=== PATIENT | male | born 1990 | race Caucasian/White ===

== ENCOUNTER 2018-12-22 09:42 | Day surgery (SDC) | payer MEDICAID, SELFPAY ==
--- NOTE | 2018-11-22 02:49 | HP_ITS ---
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 Is patient in pain?: No Allergies ibuprofen Allergy (Intermediate, Verified 11/22/18 13:28) liver swelling insulin isophane (NPH) [From Novolin 70/30 U-100 Insulin] Allergy (Intermediate, Verified 11/22/18 13:29) swelling insulin regular [From Novolin 70/30 U-100 Insulin] Allergy (Intermediate, Verified 11/22/18 13:29) swelling ketorolac [From Toradol] Allergy (Intermediate, Verified 11/22/18 13:29) Shortness of breath lisinopril Allergy (Intermediate, Verified 11/22/18 13:28) chest pain penicillin G Allergy (Intermediate, Verified 11/22/18 13:28) swelling/hives Medications carvedilol 25 mg tablet 25 mg PO BID 11/22/18 [History Confirmed 11/22/18] diltiazem CD 240 mg capsule,extended release 24 hr 240 mg PO DAILY 11/22/18 [History Confirmed 11/22/18] hydralazine 100 mg tablet 100 mg PO Q6H tab 11/22/18 [History Confirmed 11/22/18] insulin aspart prot-aspart 100 unit/mL (70-30) subcutaneous cartridge 1 sliding scale dose SC USEASDIRECTD 11/22/18 [History] insulin glargine (U-100) 100 unit/mL (3 mL) subcutaneous pen 20 unit SC DAILY 11/22/18 [History Confirmed 11/22/18] sevelamer carbonate 800 mg tablet 800 mg PO TID 11/22/18 [History Confirmed 11/22/18] PFSH Medical History (Updated 11/22/18 @ 14:46 by Chun Hinton MD) Chronic renal failure, stage 5 (Chronic) Diabetes (Acute) History of back problems (Acute) Chronic renal failure, stage 4 (severe) (Chronic) Hypertension (Chronic) Surgical History (Updated 11/22/18 @ 13:14 by Isabella Garcia) History of left cataract surgery (Acute) History of tonsillectomy (Acute) Status post insertion of dialysis catheter (Acute ~05/16/18) Status post laser cataract surgery of left eye (Acute) Family History (Updated 11/22/18 @ 13:26 by Isabella Garcia) Grandmother Asthma Arthritis Hypertension Kidney disease Diabetes Father Hypertension Grandfather Hypertension Aunt Kidney disease Diabetes Uncle Kidney disease Diabetes Mother High cholesterol Social History (Updated 11/22/18 @ 14:50 by Chun Hinton MD) Smoking Status: Current every day smoker alcohol intake: never substance use type: does not use HPI HPI HPI: DUSTY MANSFIELD, is a 28 M who presents to the office today for HPI HPI Surgical H&P: Yes HPI: DUSTY MANSFIELD, is a 28 M who presents to the office today for surgical consultation regarding arteriovenous fistula creation for hemodialysis. The patient is referred by Dr. Woodall and a written copy of my surgical consult recommendations will be returned to him. According to the patient he has been scheduled [address] Hosea Caballero to have a fistula created in by patient report [address] Caballero canceled the procedure. The patient has had right IJ tunneled dialysis catheters in place since May 2018. He is a diabetic who by his own account completely ignored his health. After his acute crisis May 2018 he states that he is doing better. States that he is legally blind and on complete disability because of this. He has and is still a chronic ongoing cigarette and tobacco user. Marijuana has been utilized as well. He denies IV drug abuse. He had bilateral upper extremity vein mapping done July 04, 2018 at [facility]. Unfortunately this demonstrates very diminutive cephalic veins bilaterally. Bilateral basilic veins are borderline. He is right arm dominant ROS General General: Yes weight change and fatigue; no appetite, colon cancer, breast cancer or weakness HEENT HEENT: Yes eye surgery; no difficulty swallowing, eye injury, swollen glands or hoarseness Endo Endocrine: Yes diabetes mellitus; no thyroid disease, thyroid cancer, Hair loss, heat intolerance or cold intolerance Skin Skin: No rash or changing moles Breast Breast: No left breast lump, right breast lump, nipple discharge, breast pain, abnormal mammogram, abnormal US or breast enlargement Musc Musculoskeletal: Yes back problems; no arthritis, rheumatoid arthritis, gout or joint pain Cardio Cardiovascular: Yes high blood pressure; no murmur, pacemaker, heart disease, atrial fibrillation, heart attack, heart stent, palpitations, shortness of breat with exertion or chest pain Psych Psychiatric: No depression, anxiety or hearing voices Resp Respiratory: Yes shortness of breath, No sleep apnea, Yes cough, No COPD, No asthma, No emphysema, No wheezing Gastro Gastrointestinal: No abdominal pain, No nausea or vomiting, Yes diarrhea, No constipation, No blood in stool, Yes acid reflux, No hemorrhoids, No ulcers, No gallbladder problem, No black,tarry stools Azeem Hematologic: No blood thinners, No blood disorders, No bleeding, No anemia, No blood clots Neuro Neurologic: No system reviewed and no additional complaints, except as docu, No as per HPI, No abnormal walking, No abnormal hearing, No abnormal movements, No abnormal speech, No behavioral changes, No burning sensations, No confusion, No seizure-like activity, No unsteadiness, No dizziness, No localized weakness, No frequent falls, No headache(s), No lack of coordination, No loss of vision, No memory loss, Yes numbness, No other visual disturbances, No radiating pain, No restless legs, No sensory deficit, No fainting, Yes tingling, No tremor(s), No weakness, No other Exam Const Nutritional Appearance: underweight Orientation: alert, awake, oriented x3 Other: Patient appears to be much older than stated age Heavy odor of tobacco HENMT Mouth: other (Very poor dentition with multiple caries) Chest Breast Palpation: No nipple discharge Other: Right IJ tunneled dialysis catheters in place Resp Effort & Inspection: normal respiratory effort Cardio Rate: regular rate Rhythm: regular rhythm Heart Sounds: no murmurs Other: Bilateral radial pulses 2+. Bilateral brachial pulses 3+. Bilateral carotid 3+ no carotid bruits. GI Palpation: soft, no hepatosplenomegaly Auscultation: normal bowel sounds Skin General: no rashes or lesions noted Extrem General: no calf tenderness bilaterally Psych Affect: normal affect Assessment & Plan Problems 1. Chronic renal failure, stage 5 N18.5 Plan 28-year-old gentleman on hemodialysis since May 2018 with chronic renal failure secondary to complications of diabetes. Additional complications include legal blindness. Complete disability. In addition to this is a chronic ongoing tobacco smoker. I have personally imaged his left upper extremity looking for adequate cephalic vein. The cephalic vein of the forearm and upper arm quite small. The left upper arm basilic vein borderline. This patient has significant dental caries. Diabetic. Ongoing tobacco use. He is at increased risk for infection. I would like to avoid placing a prosthetic dialysis device in. I proposed for him a left upper arm stage I basilic vein to brachial artery arteriovenous fistula creation and I have discussed the technique, benefits, risks, alternatives. No guarantees of success have been offered. The patient is aware that a second transposition procedure will be required. I have vigorously encouraged the patient to cease his tobacco use. He states that he has an upcoming transplant appointment and I have instructed him that they will not consider him for transplant if he is continuing to smoke. He has had an opportunity to ask and have questions answered. We will schedule and proceed as noted. I appreciate the opportunity of assisting with his surgical care. CC: and Dr Soo Hinton M.D., F.A.C.S. Coding Level of Care Code 49817 Diagnoses Chronic renal failure, stage 5 N18.5 11/22/18 4280 <Electronically signed by Chun thompson MD> Date _ Chun Hinton MD I have re-examined the patient. There are no clinical changes since date of exam.
[2018-11-22 13:26] VITALS: BMI 19.7
[2018-12-15 09:59] VITALS: BP 178/108; PULSE 76; RESP 16; TEMP 36.6; O2SAT 100; BMI 20.6
--- NOTE | 2018-12-15 10:05 | SDCEKG_ITS ---
Test Reason : Blood Pressure : / mmHG Vent. Rate : 077 BPM Atrial Rate : 077 BPM P-R Int : 142 ms QRS Dur : 098 ms QT Int : 420 ms P-R-T Axes : 063 046 111 degrees QTc Int : 475 ms Normal sinus rhythm Possible Left atrial enlargement ST & T wave abnormality, consider lateral ischemia Prolonged QT Poor R-Wave Progression Abnormal ECG Confirmed by AARON SR, JAYLON ([id number]), editor magazine BECKY SANDY ([id number]) on 12/19/2018 9:40:35 AM Referred By: Chun Hinton Confirmed By:JAYLON WALKER MD
[2018-12-15 10:29] LABS: Hematocrit 35.7 % (40-54); Hemoglobin 11.5 g/dL (13.0-16.5); Mean Corp Hgb Conc 32.2 g/dL (32-36); Mean Corpuscular Hgb 31.8 pg (27.0-32.0); Mean Corpuscular Volume 98.6 fL (80-94); Mean Platelet Vol. 11.5 fl (6.2-12.0); Platelet Count 92 K/mm3 (150-450); RBC Distribution Width CV 12.9 % (11.6-14.6); RBC Distribution Width SD 46.4 fl (35.1-43.9); Red Blood Count 3.62 M/mm3 (4.6-6.2); White Blood Count 4.9 K/mm3 (4.4-11.0)
[2018-12-15 11:19] LABS: Anion Gap 7 (5-15); BUN 38 mg/dL (7-18); BUN/Creat Ratio 4.8 RATIO (10-20); Calcium,Total 9.3 mg/dL (8.5-10.1); Chloride 99 mmol/L (98-107); Creatinine, Serum 7.87 mg/dL (0.70-1.30); EST Glomerular Filtration Rate 9 mL/min (>60); Est Glom Filt Rate - Afr Amer 11 mL/min (>60); Estimated Creatinine Clearance 12.51 ml/min; Glucose 95 mg/dL (74-106); Potassium 5.2 mmol/L (3.5-5.1); Sodium Level 138 mmol/L (136-145)
[2018-12-22] VITALS (15 sets, daily range): BP systolic 120–192; BP diastolic 80–125; PULSE 72–87; RESP 16; TEMP 36.3–36.7; O2SAT 92–98; BMI 20.6
[2018-12-22 10:56] LABS: Bedside Glucose 161 mg/dL (70-110)
--- NOTE | 2018-12-22 12:14 | DCINST_ITS ---
Discharge Diet: Renal Diet Discharge Activity: May Not Drive - for 2-3 days or while taking narcotic pain medications., May Shower, May Take a Tub Bath - in 5 days. Lifting Restrictions: 5 pounds Keep extremity elevated above heart level: - - Keep arm elevated above the heart level for 3 days. Additional Activity Instructions:: Exercise hand vigorously with a stress ball. Call your doctor if your incision/area has: Continuous Slow Oozing, Sudden Increased Bleeding - apply pressure and call your doctor., Increased Pain/ Swelling, Increased Redness, Foul Smelling Discharge Call your doctor if you observe: Fever of 101 or Higher Suture Line Care: Avoid Pulling/Pushing, Avoid Pinching/Bending Cleanse incision/area with: Keep Dressing Clean & Dry Additional Dressing/Incision Instructions:: Change or remove dressing in two days. May protect with a gauze bandaid. Allergies/Adverse Reactions: Allergies ibuprofen Allergy (Intermediate, Verified 12/22/18 10:07) liver swelling insulin isophane (NPH) [From Novolin 70/30 U-100 Insulin] Allergy (Intermediate, Verified 12/22/18 10:07) swelling insulin regular [From Novolin 70/30 U-100 Insulin] Allergy (Intermediate, Verified 12/22/18 10:07) swelling ketorolac [From Toradol] Allergy (Intermediate, Verified 12/22/18 10:07) Shortness of breath lisinopril Allergy (Intermediate, Verified 12/22/18 10:07) chest pain penicillin G Allergy (Intermediate, Verified 12/22/18 10:07) swelling/hives Medications to take at Discharge carvedilol 25 mg tablet 25 mg PO BID 11/22/18 diltiazem CD 240 mg capsule,extended release 24 hr 240 mg PO QHS 11/22/18 hydralazine 100 mg tablet 100 mg PO Q6H tab 11/22/18 insulin aspart prot-aspart 100 unit/mL (70-30) subcutaneous cartridge 1 sliding scale dose SC USEASDIRECTD 11/22/18 Calcium Acetate [Phoslo Gel Cap] 1,334 mg PO TIDCM 12/15/18 Insulin Glargine,Hum.rec.anlog [Basaglar Kwikpen U-100] 12 unit SUBCUT QHS 12/15/18 varenicline 1 mg tablet 1 mg PO BID 12/15/18 RX: Clonidine HCl [Catapres] 1 tab PO TID 12/22/18 Primary Care Physician: April Vann MD [Primary Care Provider] - Test Results: Test results from this visit will be discussed in further detail at your follow- up appointment, if applicable. Please Follow Up With: Chun Hinton MD - [phone] When: Call to make an appointment for suture removal and follow up in 7-10 days.
[2018-12-22] MEDS: Bupivacaine Mpf 0.5% 30 ML VIAL (13:00)
--- NOTE | 2018-12-22 13:16 | OP.PCM_ITS ---
Problem List (1) Chronic renal failure, stage 5 Status: Chronic Report of Operation Date of Procedure: 12/22/18 Pre-Operative Diagnosis: Stage V chronic renal failure Post-Operative Diagnosis: Same Surgery/Procedure Performed:: Stage I left upper extremity basilic vein to brachial artery venous hemodialysis fistula creation Description of Surgical Findings:: Timeout and informed consent was obtained. 28-year-old gent was taken to the operating placed on the table underwent monitored anesthesia care. The left upper extremity was sterilely prepped and draped. Clean procedure. 1% li docaine mixed 50-50 with 0.5% Marcaine was used as a local anesthetic. Throughout the procedure a total of cc was used. Preoperatively I had vein map the basilic vein at the antecubital space. Local was instilled. A oblique incision was created sharp and blunt dissection was used to identify the basilic vein. I then performed sharp and blunt dissection to identify the brachial artery. The patient received 6000 units of heparin intravenously. At a branch point the basilic vein was secured distally with hemoclips. I then at the branch point spatulated the vein. Peripheral vascular clamps were placed on the brachial artery and 11 blade was used to make an arteriotomy which was extended with Cross scissors. A end-to-side anastomosis created with a running 7-0 Prolene suture. Prior to completion there is good antegrade and retrograde flow. The anastomosis was completed. Initially was good flow in the vein. Radial pulse was still palpable 3+. Hemostasis was intact. Blood loss minimal The wound was closed with deep layer of interrupted 3-0 Vicryl and then a running septic or 4-0 Monocryl subdermal stitch. Steri-Strips Telfa tape dressings applied. Sponge and instrument counts were reported to the surgeon to be correct. Specimens none. Drains none. Blood loss minimal. He was taken to the recovery room in satisfactory condition without apparent complication Chun Hinton M.D., F.A.C.S. Type of Anesthesia:: Local MAC Anesthesiologist: Gus Garrido
[2018-12-22 13:40] LABS: Bedside Glucose 197 mg/dL (70-110)
[2018-12-22] MEDS: HYDROcodone Bitartrate/Apap 5/325 Tablet PO (15:30)
--- NOTE | 2018-12-22 15:54 | SUR.PHASEII ---
AT 1530, LEFT UPPER ARM DRESSING CHANGED FOR APPROXIMATELY 50% COVERAGE OF DRESSING WITH RED DRAINAGE. INCISION LINE EDGES ARE WELL APPROXIMATED WITH A VERY SLOW OOZE OF BLOOD. STERI STRIPS INTACT. DRY, STERILE NON-ADHERENT DRESSING. WHITE PAPER TAPE APPLIED. FISTULA HAS GOOD BRUIT AND THRILL.
== END 2018-12-22 15:45 | disposition home or self-care (01) ==
LOC: SDC 09:43 → AC 09:43
PROVIDERS: Family Provider Student in an Organized Health Care Education/Training Program; PCP Student in an Organized Health Care Education/Training Program; Referring Provider Surgery; Visit Provider Surgery
PROC: (CPT 36821; principal; 2018-12-22 11:45)
DX: Z45.2 Encounter for adjustment and management of vascular access device (principal); I12.0 Hypertensive chronic kidney disease with stage 5 chronic kidney disease or end stage renal disease; N18.5 Chronic kidney disease, stage 5; E11.22 Type 2 diabetes mellitus with diabetic chronic kidney disease; H54.8 Legal blindness, as defined in USA; F17.210 Nicotine dependence, cigarettes, uncomplicated; Z99.2 Dependence on renal dialysis; Z79.4 Long term (current) use of insulin; Z79.899 Other long term (current) drug therapy
CPT/HCPCS: 36821; 80048; 82962; 85027; 93005; A4216; J2405

== ENCOUNTER 2019-03-02 08:51 | Day surgery (SDC) | payer MEDICAID, SELFPAY ==
[2018-12-22 10:09] VITALS: BMI 20.6
[2019-02-02 10:06] VITALS: BMI 19.9
--- NOTE | 2019-02-06 10:24 | HP_ITS ---
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: No Is patient in pain?: No Allergies ibuprofen Allergy (Intermediate, Verified 02/02/19 10:00) liver swelling insulin isophane (NPH) [From Novolin 70/30 U-100 Insulin] Allergy (Intermediate, Verified 02/02/19 10:00) swelling insulin regular [From Novolin 70/30 U-100 Insulin] Allergy (Intermediate, Verified 02/02/19 10:00) swelling ketorolac [From Toradol] Allergy (Intermediate, Verified 02/02/19 10:00) Shortness of breath lisinopril Allergy (Intermediate, Verified 02/02/19 10:00) chest pain penicillin G Allergy (Intermediate, Verified 02/02/19 10:00) swelling/hives Medications carvedilol 25 mg tablet 25 mg PO BID 11/22/18 [History Confirmed 02/02/19] diltiazem HCl 240 mg capsule,extended release 24 hr 240 mg PO QHS 11/22/18 [History Confirmed 02/02/19] insulin aspart prot-aspart 100 unit/mL (70-30) subcutaneous cartridge 1 sliding scale dose SC USEASDIRECTD 11/22/18 [History Confirmed 02/02/19] Calcium Acetate [Phoslo Gel Cap] 1,334 mg PO TIDCM 12/15/18 [History Confirmed 02/02/19] Insulin Glargine,Hum.rec.anlog [Basaglar Kwikpen U-100] 12 unit SUBCUT QHS 12/15/18 [History Confirmed 02/02/19] clonidine HCl 0.1 mg tablet 0.1 mg PO BID tab 02/02/19 [History Confirmed 02/02/19] hydralazine 100 mg tablet 100 mg PO BID tab 02/02/19 [History Confirmed 02/02/19] nifedipine 60 mg tablet,extended release 60 mg PO BID tab 02/02/19 [History Confirmed 02/02/19] [facility] Medical History Chronic renal failure, stage 5 (Chronic) History of back problems (Acute) Hypertension (Chronic) Diabetes (Acute) Chronic renal failure, stage 4 (severe) (Chronic) Surgical History Hx of arteriovenostomy for renal dialysis (Acute) Status post insertion of dialysis catheter (Acute ~05/16/18) Status post laser cataract surgery of left eye (Acute) History of left cataract surgery (Acute) History of tonsillectomy (Acute) Family History Grandmother Asthma Arthritis Hypertension Kidney disease Diabetes Father Hypertension Grandfather Hypertension Aunt Kidney disease Diabetes Uncle Kidney disease Diabetes Mother High cholesterol Social History (Updated 02/06/19 @ 10:24 by Sol Jacques PA-C) Smoking Status: Current every day smoker alcohol intake: never substance use type: does not use HPI HPI HPI: DUSTY MANSFIELD, is a 28 M who presents to the office today for HPI HPI Surgical H&P: Yes HPI: DUSTY MANSFIELD, is a 28 M who presents to the office today for a follow-up and update history and physical. Patient denies recent hospitalizations or illnesses. He has been tolerating dialysis via catheter well. Patient has a stage I left upper extremity basilic vein to brachial artery venous fistula creation on 12/22/2018. Patient tolerated the procedure well. ROS General General: Yes weight change and fatigue; no appetite, colon cancer, breast cancer or weakness HEENT HEENT: Yes eye surgery; no difficulty swallowing, eye injury, swollen glands or hoarseness Endo Endocrine: Yes diabetes mellitus; no thyroid disease, thyroid cancer, Hair loss, heat intolerance or cold intolerance Skin Skin: No rash or changing moles Breast Breast: No left breast lump, right breast lump, nipple discharge, breast pain, abnormal mammogram, abnormal US or breast enlargement Musc Musculoskeletal: Yes back problems; no arthritis, rheumatoid arthritis, gout or joint pain Cardio Cardiovascular: Yes high blood pressure; no murmur, pacemaker, heart disease, atrial fibrillation, heart attack, heart stent, palpitations, shortness of breat with exertion or chest pain Psych Psychiatric: No depression, anxiety or hearing voices Resp Respiratory: Yes shortness of breath, No sleep apnea, Yes cough, No COPD, No asthma, No emphysema, No wheezing Gastro Gastrointestinal: No abdominal pain, No nausea or vomiting, Yes diarrhea, No constipation, No blood in stool, Yes acid reflux, No hemorrhoids, No ulcers, No gallbladder problem, No black,tarry stools Azeem Hematologic: No blood thinners, No blood disorders, No bleeding, No anemia, No blood clots Neuro Neurologic: No weakness Exam Const General: cooperative, healthy appearing, comfortable, no acute distress HENMT Head: normal to inspection Eyes General: appearance normal, both eyes and all related structures Neck Neck: normal visual inspection Neck mass: No Chest Breast Palpation: No nipple discharge Resp Effort & Inspection: normal respiratory effort Auscultation: clear to auscultation bilaterally Cardio Rate: regular rate Heart Sounds: no murmurs GI Inspection: normal to inspection Palpation: soft Auscultation: normal bowel sounds Skin General: no rashes or lesions noted Neuro General: no focal motor deficits, CN's II-XI intact bilaterally Extrem General: normal to inspection Psych Appearance: grossly normal Affect: normal affect Assessment & Plan Problems 1. Chronic renal failure, stage [address] Hinton will plan to perform a stage II transposition of the left upper extremity. Procedure details, risks and benefits have been reviewed with the patient. 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 Patient will be scheduled at his convenience. Coding Level of Care Code Global Post Op Diagnoses Chronic renal failure, stage 5 N18.5 Comment Update H&P 02/06/19 1024 <Electronically signed by Sol patel PA-C> Date _ Sol Jacques PA-C
[2019-03-02] VITALS (11 sets, daily range): BP systolic 135–152; BP diastolic 86–99; PULSE 69–76; RESP 14–18; TEMP 36.4–36.9; O2SAT 90–100; BMI 21.2
[2019-03-02 09:15] LABS: Hematocrit 31.8 % (40-54); Mean Corp Hgb Conc 31.4 g/dL (32-36); Mean Corpuscular Hgb 31.6 pg (27.0-32.0); Mean Corpuscular Volume 100.6 fL (80-94); Mean Platelet Vol. 11.4 fl (6.2-12.0); Platelet Count 103 K/mm3 (150-450); RBC Distribution Width CV 14.2 % (11.6-14.6); RBC Distribution Width SD 51.2 fl (35.1-43.9); Red Blood Count 3.16 M/mm3 (4.6-6.2); White Blood Count 5.9 K/mm3 (4.4-11.0)
[2019-03-02] MEDS: 0.45% Normal Saline 1,000 ML 15 ML IV (09:36)
[2019-03-02 09:37] LABS: Anion Gap 6 (5-15); BUN 24 mg/dL (7-18); BUN/Creat Ratio 3.6 RATIO (10-20); Calcium,Total 9.2 mg/dL (8.5-10.1); Chloride 100 mmol/L (98-107); Creatinine, Serum 6.69 mg/dL (0.70-1.30); EST Glomerular Filtration Rate 11 mL/min (>60); Est Glom Filt Rate - Afr Amer 13 mL/min (>60); Estimated Creatinine Clearance 15.21 ml/min; Glucose 231 mg/dL (74-106); Sodium Level 137 mmol/L (136-145)
[2019-03-02 09:46] LABS: Bedside Glucose 233 mg/dL (70-110)
--- NOTE | 2019-03-02 10:27 | PCM.HP.BLA ---
Problem List (1) Problem with dialysis access Status: Acute Qualifiers: Encounter type: initial encounter Qualified Code(s): T82.898A - Other specified complication of vascular prosthetic devices, implants and grafts, initial encounter History and Physical Date of Admission: 03/02/19 Intake Visit Reasons: Fistula Check Chief Complaint: recheck fistula Hr Shared Services Consultant Required: No Is patient in pain?: No Allergies ibuprofen Allergy (Intermediate, Verified 02/02/19 10:00) liver swelling insulin isophane (NPH) [From Novolin 70/30 U-100 Insulin] Allergy (Intermediate, Verified 02/02/19 10:00) swelling insulin regular [From Novolin 70/30 U-100 Insulin] Allergy (Intermediate, Verified 02/02/19 10:00) swelling ketorolac [From Toradol] Allergy (Intermediate, Verified 02/02/19 10:00) Shortness of breath lisinopril Allergy (Intermediate, Verified 02/02/19 10:00) chest pain penicillin G Allergy (Intermediate, Verified 02/02/19 10:00) swelling/hives Medications carvedilol 25 mg tablet 25 mg PO BID 11/22/18 [History Confirmed 02/02/19] diltiazem HCl 240 mg capsule,extended release 24 hr 240 mg PO QHS 11/22/18 [History Confirmed 02/02/19] insulin aspart prot-aspart 100 unit/mL (70-30) subcutaneous cartridge 1 sliding scale dose SC USEASDIRECTD 11/22/18 [History Confirmed 02/02/19] Calcium Acetate [Phoslo Gel Cap] 1,334 mg PO TIDCM 12/15/18 [History Confirmed 02/02/19] Insulin Glargine,Hum.rec.anlog [Basaglar Kwikpen U-100] 12 unit SUBCUT QHS 12/15/18 [History Confirmed 02/02/19] clonidine HCl 0.1 mg tablet 0.1 mg PO BID tab 02/02/19 [History Confirmed 02/02/19] hydralazine 100 mg tablet 100 mg PO BID tab 02/02/19 [History Confirmed 02/02/19] nifedipine 60 mg tablet,extended release 60 mg PO BID tab 02/02/19 [History Confirmed 02/02/19] PFSH Medical History Chronic renal failure, stage 5 (Chronic) History of back problems (Acute) Hypertension (Chronic) Diabetes (Acute) Chronic renal failure, stage 4 (severe) (Chronic) Surgical History Hx of arteriovenostomy for renal dialysis (Acute) Status post insertion of dialysis catheter (Acute ~05/16/18) Status post laser cataract surgery of left eye (Acute) History of left cataract surgery (Acute) History of tonsillectomy (Acute) Family History Grandmother Asthma Arthritis Hypertension Kidney disease Diabetes Father Hypertension Grandfather Hypertension Aunt Kidney disease Diabetes Uncle Kidney disease Diabetes Mother High cholesterol Social History (Updated 02/06/19 @ 10:24 by Sol Jacques PA-C) Smoking Status: Current every day smoker alcohol intake: never substance use type: does not use HPI HPI HPI: DUSTY MANSFIELD, is a 28 M who presents to the office today for HPI HPI Surgical H&P: Yes HPI: DUSTY MANSFIELD, is a 28 M who presents to the office today for a follow-up and update history and physical. Patient denies recent hospitalizations or illnesses. He has been tolerating dialysis via catheter well. Patient has a stage I left upper extremity basilic vein to brachial artery venous fistula creation on 12/22/2018. Patient tolerated the procedure well. ROS General General: Yes weight change and fatigue; no appetite, colon cancer, breast cancer or weakness HEENT HEENT: Yes eye surgery; no difficulty swallowing, eye injury, swollen glands or hoarseness Endo Endocrine: Yes diabetes mellitus; no thyroid disease, thyroid cancer, Hair loss, heat intolerance or cold intolerance Skin Skin: No rash or changing moles Breast Breast: No left breast lump, right breast lump, nipple discharge, breast pain, abnormal mammogram, abnormal US or breast enlargement Musc Musculoskeletal: Yes back problems; no arthritis, rheumatoid arthritis, gout or joint pain Cardio Cardiovascular: Yes high blood pressure; no murmur, pacemaker, heart disease, atrial fibrillation, heart attack, heart stent, palpitations, shortness of breat with exertion or chest pain Psych Psychiatric: No depression, anxiety or hearing voices Resp Respiratory: Yes shortness of breath, No sleep apnea, Yes cough, No COPD, No asthma, No emphysema, No wheezing Gastro Gastrointestinal: No abdominal pain, No nausea or vomiting, Yes diarrhea, No constipation, No blood in stool, Yes acid reflux, No hemorrhoids, No ulcers, No gallbladder problem, No black,tarry stools Azeem Hematologic: No blood thinners, No blood disorders, No bleeding, No anemia, No blood clots Neuro Neurologic: No weakness Exam Const General: cooperative, healthy appearing, comfortable, no acute distress HENMT Head: normal to inspection Eyes General: appearance normal, both eyes and all related structures Neck Neck: normal visual inspection Neck mass: No Chest Breast Palpation: No nipple discharge Resp Effort & Inspection: normal respiratory effort Auscultation: clear to auscultation bilaterally Cardio Rate: regular rate Heart Sounds: no murmurs GI Inspection: normal to inspection Palpation: soft Auscultation: normal bowel sounds Skin General: no rashes or lesions noted Neuro General: no focal motor deficits, CN's II-XI intact bilaterally Extrem General: normal to inspection Psych Appearance: grossly normal Affect: normal affect Assessment & Plan Problems 1. Chronic renal failure, stage [address] Hinton will plan to perform a stage II transposition of the left upper extremity. Procedure details, risks and benefits have been reviewed with the patient. 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 Patient will be scheduled at his convenience. Coding Level of Care Code Global Post Op Diagnoses Chronic renal failure, stage 5 N18.5 Comment Update H&P 02/06/19 1024 <Electronically signed by Sol Jacques PA-C> Date I have re-examined the patient. There are no clinical changes since date of exam.
--- NOTE | 2019-03-02 10:46 | DCINST_ITS ---
Discharge Diet: Renal Diet Discharge Activity: May Not Drive - for 2-3 days or while taking narcotic pain medications., May Shower, May Take a Tub Bath - in 5 days. Lifting Restrictions: 5 pounds Keep extremity elevated above heart level: - - Keep arm elevated above the heart level for 3 days. Additional Activity Instructions:: Exercise hand vigorously with a stress ball. Call your doctor if your incision/area has: Continuous Slow Oozing, Sudden Increased Bleeding - apply pressure and call your doctor., Increased Pain/ Swelling, Increased Redness, Foul Smelling Discharge Call your doctor if you observe: Fever of 101 or Higher Suture Line Care: Avoid Pulling/Pushing, Avoid Pinching/Bending Cleanse incision/area with: Keep Dressing Clean & Dry Additional Dressing/Incision Instructions:: Leave the elastic dressing on for 3 days and keep the area clean and dry for the same. After you remove the elastic dressing please leave the Steri-Strips on for an additional week Allergies/Adverse Reactions: Allergies ibuprofen Allergy (Intermediate, Verified 03/02/19 09:12) liver swelling insulin isophane (NPH) [From Novolin 70/30 U-100 Insulin] Allergy (Intermediate, Verified 03/02/19 09:12) swelling insulin regular [From Novolin 70/30 U-100 Insulin] Allergy (Intermediate, Verified 03/02/19 09:12) swelling ketorolac [From Toradol] Allergy (Intermediate, Verified 03/02/19 09:12) Shortness of breath lisinopril Allergy (Intermediate, Verified 03/02/19 09:12) chest pain penicillin G Allergy (Intermediate, Verified 03/02/19 09:12) swelling/hives Medications to take at Discharge carvedilol 25 mg tablet 25 mg PO BID 11/22/18 diltiazem HCl 240 mg capsule,extended release 24 hr 240 mg PO QHS 11/22/18 insulin aspart prot-aspart 100 unit/mL (70-30) subcutaneous cartridge 1 sliding scale dose SC USEASDIRECTD 11/22/18 Calcium Acetate [Phoslo Gel Cap] 1,334 mg PO TIDCM 12/15/18 Insulin Glargine,Hum.rec.anlog [Basaglar Kwikpen U-100] 12 unit SUBCUT QHS 12/15/18 clonidine HCl 0.1 mg tablet 0.1 mg PO BID tab 02/02/19 hydralazine 100 mg tablet 100 mg PO BID tab 02/02/19 nifedipine 60 mg tablet,extended release 60 mg PO BID tab 02/02/19 Hydrocodone Bitart/Apap 5-325 [[place] 5MG-325MG] 1 tablet PO Q6H PRN PRN 3 Days #8 tablet 03/02/19 The following prescriptions were given: Hydrocodone Bitart/Apap 5-325 [[place] 5MG-325MG] 1 tablet PO Q6H PRN PRN 3 Days #8 tablet PRN Reason: Pain Transmission Status: Sent to [id number] Primary Care Physician: April aVnn MD [Primary Care Provider] - Test Results: Test results from this visit will be discussed in further detail at your follow- up appointment, if applicable. Please Follow Up With: Chun Hinton MD - [phone] When: Call to make an appointment for suture removal and follow up in 1 week.
[2019-03-02] MEDS: Bupivacaine Mpf 0.5% 30 ML VIAL (11:01)
[2019-03-02] MEDS: Heparin Injection (Vial) 5,000 UNIT/ML VIAL 5000 UNIT (11:01)
--- NOTE | 2019-03-02 13:05 | PCM.OPRPT ---
Problem List (1) Problem with dialysis access Status: Acute Qualifiers: Encounter type: initial encounter Qualified Code(s): T82.898A - Other specified complication of vascular prosthetic devices, implants and grafts, initial encounter Report of Operation Date of Procedure: 03/02/19 Pre-Operative Diagnosis: Chronic renal insufficiency in need of arteriovenous hemodialysis access Post-Operative Diagnosis: Same Surgery/Procedure Performed:: Stage II transposition left upper arm basilic vein to brachial artery arteriovenous hemodialysis fistula creation Description of Surgical Findings:: Timeout and informed consent was obtained. 28-year-old gent was taken the operating placement table underwent monitored anesthesia care. The left upper extremity was sterilely prepped and draped. 23 cc of 1% lidocaine mixed 50-50 with 0.5% Marcaine as well as 11 cc of half percent lidocaine was used as local anesthetic. Ultrasound mapping of the basilic vein was performed. Local was instilled. A longitudinal incision was made in the medial aspect of left upper arm. Tedious sharp and blunt dissection was used to harvest the basilic vein. Side branches were secured with 3-0 Vicryl ligatures and hemoclips were indicated. Dissection was performed all the way up to the axilla. The vein was measured new position was mapped and then sharp and blunt dissection was used to identify the brachial artery circumferential control was obtained. A tunneler was used to create a tunnel more superficially placed in more on the dorsal aspect of the arm. The vein was ligated distally with 3-0 Vicryl suture ligature then placed through the tunnel. The patient received 7000's of heparin. Peripheral vascular clamps were placed on the brachial artery and 11 blade was used to make an arteriotomy which was extended with Cross scissors. A end-to-side anastomosis was created with a running 7-0 Prolene. At the completion hemostasis was intact. There was a good pulse and thrill. There was still a 2+ left radial pulse there was also a left ulnar pulse dopplerable. Hand appeared to be viable capillary refill was present. The patient then received 30 mg of protamine as reversal. The deep tissues were approximated with interrupted 3-0 Vicryl subdermal stitches. Skin edges approximated running septic or 4 Monocryl. Steri-Strips Telfa soft roll Jagdish wrap applied. Sponge and instrument and needle counts reported the surgeon for correct. Specimens none. Drains none. Blood loss 200cc. The patient was taken to the recovery room in satisfactory edition without apparent complication Type of Anesthesia:: Local MAC Anesthesiologist: Gus Garrido
[2019-03-02] MEDS: HYDROcodone Bitartrate/Apap 5/325 Tablet PO (15:25)
== END 2019-03-02 15:49 | disposition home or self-care (01) ==
LOC: SDC 08:52 → AC 08:53
PROVIDERS: Family Provider Student in an Organized Health Care Education/Training Program; PCP Student in an Organized Health Care Education/Training Program; Referring Provider Surgery; Visit Provider Surgery
PROC: (CPT 36832; principal; 2019-03-02 10:45)
DX: T82.898A Other specified complication of vascular prosthetic devices, implants and grafts, initial encounter (principal); I12.0 Hypertensive chronic kidney disease with stage 5 chronic kidney disease or end stage renal disease; E11.22 Type 2 diabetes mellitus with diabetic chronic kidney disease; N18.5 Chronic kidney disease, stage 5; H54.8 Legal blindness, as defined in USA; F17.210 Nicotine dependence, cigarettes, uncomplicated; Z99.2 Dependence on renal dialysis; Z79.4 Long term (current) use of insulin
CPT/HCPCS: 01844; 36832; 36415; 80048; 82962; 85027